=== PATIENT | male | born 1950 | race Caucasian/White ===

== ENCOUNTER 2020-03-28 15:17 | Inpatient (IN) | payer MEDICARE, OTHER ==
[~2020-03-28] VITALS: Ht 177.8 cm; Wt 76.4 kg
[2020-03-28] MEDS ORDERED: SYNTHROID100 MCG PO (15:31)
[2020-03-28] MEDS ORDERED: OSTEO BI-FLEX1 EAC1 PO (15:31)
[2020-03-28] MEDS ORDERED: TERBINAFINE HC250 MG PO (15:31)
[2020-03-28] MEDS ORDERED: OMEGA-3100 MG PO (15:31)
[2020-03-28 16:02] LABS: HEMATOCRIT 32.5 % (42.0-54.0); HEMOGLOBIN 11.5 g/dL (13.5-17.5); LYMPHOCYTE ABS# 0.86 10x3/uL (1.32-3.57); MCH 31.3 pg (26.0-34.0); MCHC 35.4 g/dL (31.0-37.0); MCV 88.6 fL (80.0-100.0); MEAN PLATELET VOLUME 11.4 fL (7.4-10.4); NEUTROPHIL ABS# 18.69 10x3/uL (1.78-5.38); PLATELET COUNT 194 10x3/uL (130-400); RBC 3.67 10x6/uL (4.20-6.10); RDW 13.3 % (11.5-14.5); WBC 21.1 10x3/uL (4.8-10.8)
[2020-03-28 16:05] VITALS: BP 105/47
[2020-03-28 16:10] LABS: ANION GAP 12.5 mmol/L (8-16); CALCIUM 8.3 mg/dL (8.5-10.1); CARBON DIOXIDE 22.7 mmol/L (21.0-32.0); CREATININE - SERUM 1.6 mg/dL (0.6-1.3); POTASSIUM - SERUM 3.2 mmol/L (3.5-5.1)
--- NOTE | 2020-03-28 16:15 | NUR ---
SL PLACED RIGHT FA AND BC DRAWN FROM SITE
[2020-03-28 16:18] LABS: ALBUMIN 2.4 g/dL (3.4-5.0); BILIRUBIN - TOTAL 1.36 mg/dL (0.2-1.3); PROTEIN - SERUM 6.8 g/dL (6.4-8.2)
[2020-03-28 16:23] LABS: BILIRUBIN 1+ (NEGATIVE); KETONE SMALL mg/dL (NEGATIVE); NITRITE NEGATIVE (NEGATIVE); UROBILINOGEN 4 mg/dL (< 2)
[2020-03-28 16:28] LABS: GRANULAR CAST 0-5 LPF (NONE SEEN)
[2020-03-28 16:33] LABS: LYMPHOCYTES 5 % (15-50); MONOCYTES 3 % (2-11); NEUTROPHILS 86 % (40-80); TOXIC GRANULATION 2+
[2020-03-28 16:34] LABS: PLATELET ESTIMATE NORMAL; VACUOLES 1+
--- NOTE | 2020-03-28 16:43 | NUR ---
CRITICAL LAB: LACTIC ACID 2.6 LUNA CARTER NOTIFIED
[2020-03-28 17:53] VITALS: BP 105/47
[2020-03-28 18:40] VITALS: BP 108/49
--- NOTE | 2020-03-28 18:41 | NUR ---
2300 FLD BOLUS COMPLETED AND NS INFUSING @ 100 ML /HR
--- NOTE | 2020-03-28 19:05 | NUR ---
AZITHROMYCIN 500 MG COMPLETED @ 0306
--- NOTE | 2020-03-28 19:29 | NUR ---
BS REPORT TO JANI BARAJAS
[2020-03-28 20:00] VITALS: BP 115/55
[2020-03-28 21:32] LABS: SARS-CoV-2 ANTIGEN NEGATIVE- SARS-COV-2 (NEGATIVE)
[2020-03-29] VITALS (8 sets, daily range): BP systolic 104–138; BP diastolic 47–62; BMI 23.6
[2020-03-29 07:34] LABS: APTT 33.7 SECONDS (22.8-39.4); INR 1.3 (0.85-1.17)
[2020-03-29 07:35] LABS: BASOPHILS 0 % (0-2); EOSINOPHILS 0 % (0-7); HEMATOCRIT 27.1 % (42.0-54.0); HEMOGLOBIN 9.6 g/dL (13.5-17.5); IMMATURE GRANULOCYTES 1.2 % (0-5); LYMPHOCYTE ABS# 0.89 10x3/uL (1.32-3.57); LYMPHOCYTES 4.1 % (15-50); MCH 31.2 pg (26.0-34.0); MCHC 35.4 g/dL (31.0-37.0); MEAN PLATELET VOLUME 11.7 fL (7.4-10.4); MONOCYTES 1.7 % (2-11); NEUTROPHIL ABS# 20.18 10x3/uL (1.78-5.38); PLATELET COUNT 168 10x3/uL (130-400); RBC 3.08 10x6/uL (4.20-6.10); RDW 13.8 % (11.5-14.5); WBC 21.7 10x3/uL (4.8-10.8)
[2020-03-29 07:55] LABS: ANION GAP 13.7 mmol/L (8-16); CALCIUM 7.6 mg/dL (8.5-10.1); CARBON DIOXIDE 20.8 mmol/L (21.0-32.0); CREATININE - SERUM 1.2 mg/dL (0.6-1.3); MAGNESIUM - SERUM 2.4 mg/dL (1.8-2.4); PHOSPHOROUS 2.6 mg/dL (2.5-4.9); POTASSIUM - SERUM 3.5 mmol/L (3.5-5.1)
[2020-03-29 08:09] LABS: C-REACTIVE PROTEIN 33.9 mg/dL (0.0-0.9)
[2020-03-29 08:38] LABS: ERYTHROCYTE SEDIMENTATION RATE 110 mm/hr (0-20)
--- NOTE | 2020-03-29 19:17 | NUR ---
REPORT FROM JANIE RN. ASSUMING CARE AT THIS TIME.
--- NOTE | 2020-03-29 20:52 | NUR ---
PATIENT SITTING UP IN BED. NAD NOTED. BED IN LOWEST LOCKED POSITION. AA&OX4.
[2020-03-30 00:37] VITALS: BP 131/60
--- NOTE | 2020-03-30 02:39 | NUR ---
PATIENT RESTING IN BED WITH NAD NOTED. LIGHTS DIMMED AND BED IN LOWEST LOCKED POSITION.
[2020-03-30 05:32] VITALS: BP 126/64
[2020-03-30 08:00] VITALS: BP 146/71
[2020-03-30 09:15] LABS: HEMATOCRIT 27.4 % (42.0-54.0); HEMOGLOBIN 9.5 g/dL (13.5-17.5); MCH 30.6 pg (26.0-34.0); MCHC 34.7 g/dL (31.0-37.0); MCV 88.4 fL (80.0-100.0); MEAN PLATELET VOLUME 11.4 fL (7.4-10.4); PLATELET COUNT 215 10x3/uL (130-400); RDW 14.4 % (11.5-14.5); WBC 27.2 10x3/uL (4.8-10.8)
[2020-03-30 09:28] LABS: ANION GAP 13.3 mmol/L (8-16); CALCIUM 7.8 mg/dL (8.5-10.1); CARBON DIOXIDE 20.2 mmol/L (21.0-32.0); CREATININE - SERUM 1.2 mg/dL (0.6-1.3); MAGNESIUM - SERUM 2.5 mg/dL (1.8-2.4); PHOSPHOROUS 3.1 mg/dL (2.5-4.9); POTASSIUM - SERUM 3.5 mmol/L (3.5-5.1)
[2020-03-30 09:41] LABS: BURR CELLS 1+; LYMPHOCYTES 5 % (15-50); NEUTROPHILS 93 % (40-80); PLATELET ESTIMATE NORMAL
[2020-03-30 09:42] LABS: TEAR DROP CELLS OCC
--- NOTE | 2020-03-30 11:00 | NUR ---
VANCOMYCIN COMPLETED AT THIS TIME
[2020-03-30 12:16] VITALS: BP 142/63
--- NOTE | 2020-03-30 13:26 | NUR ---
RECEIVED TO ROOM VIA STRETCHER. IV INFUSING TO RIGHT FOREARM WITHOUT PROBLEMS. GLASSES ON. NO BRUISING SEEN TO LEFT SIDE. BILATERAL UPPER LOBE CRACKLES HEARD. IS IS AT BEDSIDE FROM THE ED WITH PATIENT. WILL ADMIT. ON ROOM AIR SATS ARE 98%, PLACED ON 2L PER NC FOR COMFORT.
--- NOTE | 2020-03-30 13:41 | NUR ---
LEFT ELBOW SEEN WITH SCAB, PATIENT STATES TO HAVING COVID WEEK BEFORE XAVIER.
[2020-03-30 13:47] VITALS: BP 102/78; Ht 177.8 cm; Wt 76.4 kg
--- NOTE | 2020-03-30 18:33 | NUR ---
PATIENT TO REQUEST HOT TEA, GIVEN. BAG FROM HIS DROPPED TO ER GIVEN TO PATIENT. DENIES ANY FURTHER NEEDS.
--- NOTE | 2020-03-30 19:30 | NUR ---
RECEIVED REPORT, WILL ASSUME CARE OF PT, WATCHING TV, DENIES ANY NEEDS, BED IS LOW, SRX2, CALL LIGHT IN REACH, WILL CONTINUE PLAN OF CARE
[2020-03-30 20:30] VITALS: BP 145/70
[2020-03-31 00:30] VITALS: BP 137/56
--- NOTE | 2020-03-31 04:06 | NUR ---
I have reviewed this patient and I concur with the Shift Assessment completed by the Licensed Practical Nurse today this shift.
[2020-03-31 04:30] VITALS: BP 135/61
[2020-03-31 06:39] LABS: BASOPHILS 0.2 % (0-2); EOSINOPHILS 0 % (0-7); HEMATOCRIT 25.5 % (42.0-54.0); LYMPHOCYTE ABS# 1.26 10x3/uL (1.32-3.57); LYMPHOCYTES 6.6 % (15-50); MCH 31.3 pg (26.0-34.0); MCHC 35.3 g/dL (31.0-37.0); MCV 88.5 fL (80.0-100.0); MEAN PLATELET VOLUME 11.5 fL (7.4-10.4); MONOCYTES 4.9 % (2-11); NEUTROPHIL ABS# 15.93 10x3/uL (1.78-5.38); NEUTROPHILS 83.3 % (40-80); PLATELET COUNT 229 10x3/uL (130-400); RBC 2.88 10x6/uL (4.20-6.10); RDW 14.3 % (11.5-14.5)
[2020-03-31 07:03] LABS: CALC OSMOLALITY 291 mosm/kg (275-300); CALCIUM 7.5 mg/dL (8.5-10.1); CARBON DIOXIDE 19.5 mmol/L (21.0-32.0); CHLORIDE - SERUM 110 mmol/L (98-107); GLUCOSE 135 mg/dL (74-106); MAGNESIUM - SERUM 2.1 mg/dL (1.8-2.4); PHOSPHOROUS 3.4 mg/dL (2.5-4.9); POTASSIUM - SERUM 3.9 mmol/L (3.5-5.1); SODIUM 142 mmol/L (136-145); UREA NITROGEN 31 mg/dL (7-18); eGFR NON AFRICAN AMERICAN 78 mL/min (90-120)
[2020-03-31 07:04] LABS: WBC 19.1 10x3/uL (4.8-10.8)
[2020-03-31 07:19] LABS: % SATURATION 54 % (15-55); IRON 68 ug/dl (35-150); TOTAL IRON BIND CAPACITY 124 ug/dl (260-445); UNSAT IRON BIND CAPACITY 56 ug/dl (150-375)
[2020-03-31 08:00] VITALS: BP 143/63
[2020-03-31 11:38] VITALS: BP 138/64
[2020-03-31 16:00] VITALS: BP 128/54
--- NOTE | 2020-03-31 17:34 | NUR ---
0798-RECIEVED PER FLOW SHEET-SITTING UP IN BED-VERBALLY APPROPRIATE- 1130-[facility] CINDY ALONZO AT BEDSIDE AND SPOKE WITH PT-ECHO IN PROGRESS 1630-DR PELAYO AT BEDSIDE-SPOKE WITH PT REGARDING STATUS-
--- NOTE | 2020-03-31 19:55 | NUR ---
RECEIVED REPORT, WILL ASSUME CARE OF PT, SLEEPING, NO DISTRESS AT THIS TIME, BED IS LOW, SRX2, CALL LIGHT IN REACH, WILL CONTINUE PLAN OF CARE
[2020-03-31 20:10] VITALS: BP 140/67
[2020-04-01 00:26] VITALS: BP 142/65
--- NOTE | 2020-04-01 05:34 | NUR ---
I have reviewed this patient and I concur with the Shift Assessment completed by the Licensed Practical Nurse today this shift.
[2020-04-01 07:39] LABS: HEMATOCRIT 29.4 % (42.0-54.0); HEMOGLOBIN 10.1 g/dL (13.5-17.5); LYMPHOCYTE ABS# 1.74 10x3/uL (1.32-3.57); MCH 30.5 pg (26.0-34.0); MCHC 34.4 g/dL (31.0-37.0); MCV 88.8 fL (80.0-100.0); MEAN PLATELET VOLUME 10.5 fL (7.4-10.4); NEUTROPHIL ABS# 16.96 10x3/uL (1.78-5.38); PLATELET COUNT 275 10x3/uL (130-400); RBC 3.31 10x6/uL (4.20-6.10); RDW 14.5 % (11.5-14.5); WBC 21.1 10x3/uL (4.8-10.8)
[2020-04-01 07:50] LABS: CALC OSMOLALITY 284 mosm/kg (275-300); CALCIUM 7.6 mg/dL (8.5-10.1); CARBON DIOXIDE 23.4 mmol/L (21.0-32.0); CHLORIDE - SERUM 107 mmol/L (98-107); CREATININE - SERUM 0.9 mg/dL (0.6-1.3); GLUCOSE 119 mg/dL (74-106); MAGNESIUM - SERUM 1.9 mg/dL (1.8-2.4); PHOSPHOROUS 3.8 mg/dL (2.5-4.9); POTASSIUM - SERUM 3.9 mmol/L (3.5-5.1); SODIUM 141 mmol/L (136-145); VANCOMYCIN - TROUGH 13.8 ug/mL (10.0-20.0); eGFR NON AFRICAN AMERICAN 88 mL/min (90-120)
[2020-04-01 07:51] LABS: UREA NITROGEN 22 mg/dL (7-18)
--- NOTE | 2020-04-01 07:58 | NUR ---
received report. pt lying in bed. resp even and unlabored. 2 LPM via NC intact. AAOx4. no distress noted. pt denies pain. call light and water within reach. bed in lowest position. side rails x2.
[2020-04-01 08:03] VITALS: BP 116/80
[2020-04-01 08:33] VITALS: BP 122/66
[2020-04-01 10:21] VITALS: BP 155/65
[2020-04-01 11:27] LABS: LYMPHOCYTES 12 % (15-50); MONOCYTES 7 % (2-11); NEUTROPHILS 73 % (40-80); PLATELET ESTIMATE NORMAL
--- NOTE | 2020-04-01 13:23 | NUR ---
Nutrition Follow-up: Pt in droplet isolation. Chart reviewed. Noted poor PO intake yesterday (0-10%). Diet: Regular PO intake: 18% avg x 4 meals Wt: 168# (03/30) Labs noted: Glu 119, Ca 7.6 Meds noted: Phenergan, Florajen, Pepcid, Glucosamine, Lasix, Decadron, fish oil, zinc sulfate, vit B1, vit C, vit D, electrolyte protocol -Encourage PO intake and honor food preferences. -+Ensure with meals. -Need new wt. -RD will follow up within 3-4 days.
[2020-04-01 16:31] VITALS: BP 144/56
--- NOTE | 2020-04-01 17:42 | NUR ---
occult stool sample collected. sent to lab by Doris LEMUS
[2020-04-01 20:18] VITALS: BP 154/56
[2020-04-02 00:40] VITALS: BP 131/41
--- NOTE | 2020-04-02 02:00 | NUR ---
I have reviewed this patient and I concur with the Shift Assessment completed by the Licensed Practical Nurse today this shift.
[2020-04-02 05:09] VITALS: BP 108/60
[2020-04-02 07:13] LABS: BASOPHILS 0.1 % (0-2); EOSINOPHILS 0.1 % (0-7); HEMATOCRIT 27.3 % (42.0-54.0); HEMOGLOBIN 9.5 g/dL (13.5-17.5); IMMATURE GRANULOCYTES 6.3 % (0-5); LYMPHOCYTE ABS# 1.25 10x3/uL (1.32-3.57); LYMPHOCYTES 6.6 % (15-50); MCHC 34.8 g/dL (31.0-37.0); MCV 89.2 fL (80.0-100.0); MEAN PLATELET VOLUME 10.9 fL (7.4-10.4); MONOCYTES 3.4 % (2-11); NEUTROPHIL ABS# 15.92 10x3/uL (1.78-5.38); NEUTROPHILS 83.5 % (40-80); PLATELET COUNT 326 10x3/uL (130-400); RBC 3.06 10x6/uL (4.20-6.10); RDW 14.4 % (11.5-14.5)
[2020-04-02 07:19] LABS: CALC OSMOLALITY 285 mosm/kg (275-300); CALCIUM 7.2 mg/dL (8.5-10.1); CARBON DIOXIDE 24.4 mmol/L (21.0-32.0); CHLORIDE - SERUM 107 mmol/L (98-107); CREATININE - SERUM 0.9 mg/dL (0.6-1.3); GLUCOSE 132 mg/dL (74-106); MAGNESIUM - SERUM 1.9 mg/dL (1.8-2.4); POTASSIUM - SERUM 4.1 mmol/L (3.5-5.1); SODIUM 141 mmol/L (136-145); UREA NITROGEN 22 mg/dL (7-18); eGFR NON AFRICAN AMERICAN 88 mL/min (90-120)
[2020-04-02 08:44] VITALS: BP 113/59
--- NOTE | 2020-04-02 12:39 | MORECARE ---
CASE MANAGEMENT DISCHARGE SUMMARY PATIENT: LAM GLOVER UNIT: [id number] ADM DATE: 03/28/20 AGE: 70 : 48 SEX: M ROOM/BED: D.2121 AUTHOR: SHABBIR CURRY PHYSICIAN: REFERRING PHYSICIAN: CAROLE TEAGUE MD DATE OF SERVICE: 04/02/20 Discharge Plan Patient Name: LAM GLOVER Facility: [facility]:[place] : 1950 Planned Disposition: Home Anticipated Discharge Date: Discharge Date: Expected LOS: Initial Reviewer: [email or web address] Initial Review Date: 04/02/2020 Generated: 04/02/20 1:39 pm Coverage Notice Reviewer: [email or web address] - Katarzyna Kaye Notice Issued Date-Time: 04/02/2020 12:35 Notice Type: IM Discharge Notice Notice Delivered To: Patient Relationship to Patient: Self Prospect Manager Name: Delivery Method: HAND - Hand Delivered Dena Days: Prior Verbal Notification: Recipient Understood Notice: Yes Recipient Signature: Yes Med Rec Note Co-signed by Attending: Coverage Notice Comment: IMM explained, signed, given, copy placed in MR Patient Name: LAM GLOVER Page [id number] at 1239 All edits/amendments must be made on the electronic document DICTATION DATE: 04/02/20 1239 GRADES 9 THROUGH 12 TEACHER: LILO 04/02/20 1239 RPT#: [id number] DC DATE: STATUS: ADM IN [address] [place] [address] [place] [address] END OF REPORT
--- NOTE | 2020-04-02 12:47 | MORECARE ---
CASE MANAGEMENT DISCHARGE SUMMARY PATIENT: LAM GLOVER UNIT: [id number] ADM DATE: 03/28/20 AGE: 70 : 48 SEX: M ROOM/BED: D.6237 AUTHOR: PATRICIODOC PHYSICIAN: REFERRING PHYSICIAN: CAROLE TEAGUE MD DATE OF SERVICE: 04/02/20 Discharge Plan Patient Name: LAM GLOVER Facility: [facility]:[place] : 1950 Planned Disposition: Home Anticipated Discharge Date: Discharge Date: Expected LOS: Initial Reviewer: [email or web address] Initial Review Date: 04/02/2020 Generated: 04/02/20 1:46 pm Comments DCP- Discharge Planning Updated by [email or web address]: Katarzyna Kaye on 04/02/20 11:[address] Patient Name: LAM GLOVER Admission Status: ER Accout number: [id number] Admission Date: 03-28-2020 : 1950 Admission Diagnosis:PNEUMONIA, UNSPECIFIED ORGANISM Attending: CAROLE MATSON Current LOS: 5 Anticipated DC Date: Planned Disposition: Home Primary Insurance: MEDICARE A & B Discharge Planning Comments: CM met with patient to complete initial dc planning assessment. CM educated patient on the CM role and verbal consent given by patient to complete assessment. CM verified patient's address, phone number, and emergency contact phone numbers. Patient lives at home with spouse. At discharge patient plans to return and feels this is a safe discharge. CM discussed availability of home health, rehab services, and medical equipment. Patient denied known discharge needs at this time. Transportation provider at discharge will be his . He is not wearing oxygen, walk test has been ordered and I spoke with Shankar with RT. IMM explained, signed, given, copy placed in MR. CM will continue to follow and will assist as needed with dc plans/needs. Residential Substance Abuse Counselor: Katarzyna Kaye DCPIA - Discharge Planning Initial Assessment Updated by [email or web address]: Katarzyna Kaye on 04/02/20 12:40 pm * Is the patient Alert and Oriented? Yes * How many steps to enter\exit or inside your home? ramp/0 * PCP See's Kina at [facility], thinks it's Dr. Sow * Pharmacy [facility] * Preadmission Environment Home with Family * ADLs Independent * Equipment None * List name and contact numbers for known caregivers / representatives who currently or will assist patient after discharge: Serina Glover - [phone] * Verbal permission to speak to the caregivers and representatives has been obtained from the patient. Yes * Community resources currently utilized None * Additional services required to return to the preadmission environment? No * Can the patient safely return to the preadmission environment? Yes * Has this patient been hospitalized within the prior 30 days at any hospital? No Coverage Notice Reviewer: [email or web address] Marc Kaye Notice Issued Date-Time: 04/02/2020 12:35 Notice Type: IM Discharge Notice Notice Delivered To: Patient Relationship to Patient: Self Drum Carrier Name: Delivery Method: HAND - Hand Delivered Dena Days: Prior Verbal Notification: Recipient Understood Notice: Yes Recipient Signature: Yes Med Rec Note Co-signed by Attending: Coverage Notice Comment: IMM explained, signed, given, copy placed in MR Last DP export: 04/02/20 11:39 a Patient Name: LAM GLOVER Page [id number] at 1247 All edits/amendments must be made on the electronic document DICTATION DATE: 04/02/201245 PASSENGER VESSEL CHEF: LILO 04/02/20 124 RPT#: [id number] DC DATE: STATUS: ADM IN [facility] [address] [place] [address] END OF REPORT
[2020-04-02 13:02] VITALS: BP 134/52
[2020-04-02] MEDS ORDERED: FEXOFENADINE HC60 MG PO (13:21)
[2020-04-02] MEDS ORDERED: MUCINEX DM ER1 EAC1 PO (13:22)
[2020-04-02] MEDS ORDERED: DULERA 100 MCG8.8 GM INH (13:22)
[2020-04-02] MEDS ORDERED: TESSALON PERLE100 MG PO (13:22)
[2020-04-02] MEDS ORDERED: SINGULAIR10 MG PO (13:22)
[2020-04-02] MEDS ORDERED: AZITHROMYCIN500 MG PO (13:24)
[2020-04-02] MEDS ORDERED: OMNICEF300 MG PO (13:24)
--- NOTE | 2020-04-02 14:30 | EC ---
PATIENT:LAM GLOVER DATE OF SERVICE: 03/28/20 SEX: M MEDICAL RECORD: [id number] DATE OF : 46 LOCATION:D.M2 D.212 AGE OF PATIENT: 70 ADMISSION DATE: 03/28/20 REFERRING PHYSICIAN: INTERPRETING PHYSICIAN: LOPEZ MASTERS MD ECHOCARDIOGRAM REPORT ECHO CHARGES 4 ECHO COMPLETE Date: 03/31/20 CLINICAL DIAGNOSIS: EVALUATE CHF ECHOCARDIOGRAPHIC MEASUREMENTS (adult normal given) AC root (d.<3.7cm) 4.1 cm LV Septum d (<1.2 cm> 1.2 cm Valve Excursion 2.4 cm LV Septum (systole) 1.2 cm Left Atria (s.<4.0cm> 4.5 cm LVPW d(<1.2cm) 1.5 cm RV (d.<2.3cm) 4.6 cm LVPW (sytole) 1.6 cm LV diastole(<5.6CM) 5.0 cm MV E-F(>70mm/sec) cm LV systole 3.6 cm LVOT Diameter 2.1 cm MV exc.(>10mm) cm Est.ejection fraction (50-75%) 55 % DOPPLER: LVIT cm/sec A 78 cm/sec E 112 cm/sec LA cm/sec RVSP 46 mmHg LVOT 121 cm/sec AOP1/2T m/s Asc. Ao 129 cm/sec RVOT 69 cm/sec RA 4.9 cm/sec PA 72 cm/sec AV Gradient Peak 6 mmHg AV Mean 3 mmHg AV Area 3.0 cm MV Gradient Peak 8 mmHg MV Mean 2 mmHg MV Area cm COMMENTS: Slide Machine Tender: Fabiola PRUETT Healthcare Analyst: 3 Dr. Martinez TAPE# Pericardial Effusion N DATE OF SERVICE: Adequate 2D, color-flow imaging, spectral Doppler, and M-Mode FINDINGS: No LVH. LV internal dimension is normal. Wall motion is normal. EF is greater than or equal to 55%. Aortic valve is tricuspid. No evidence of stenosis by Doppler interrogation. There is mild AI by color-flow imaging. Left atrium is mildly dilated at 4.5 cm. Mitral valve shows no prolapse. Trace MR. Right side is grossly normal. Trace TR. ECHOCARDIOGRAM REPORT [id number] LAM GLOVER TRANSINT:[id number] Voice Confirmation ID: [id number] DOCUMENT ID: [id number] LOPEZ MASTERS MD at 1430 CC: [id number] DICTATION DATE: 04/01/20 1009 SCHOOL COUNSELOR: 04/01/20 1249 ADM IN [facility] [address] [id number]
[2020-04-02 15:11] LABS: AEROBE ID Final report (())
[2020-04-02 16:08] VITALS: BP 138/37
--- NOTE | 2020-04-02 16:20 | NUR ---
PATIENT WALKED 150 FEET WITH CGA.
--- NOTE | 2020-04-02 17:10 | NUR ---
PATIENT BEING WHEELED OUT AT THIS TIME. BELONGINGS IN HAND. NAD NOTED.
--- NOTE | 2020-04-03 09:46 | MORECARE ---
CASE MANAGEMENT DISCHARGE SUMMARY PATIENT: LAM GLOVER UNIT: [id number] ADM DATE: 03/28/20 AGE: 70 : 48 SEX: M ROOM/BED: D.6116 AUTHOR: PATRICIODOC PHYSICIAN: REFERRING PHYSICIAN: CAROLE TEAGUE MD DATE OF SERVICE: 04/03/20 Discharge Plan Patient Name: LAM GLOVER Facility: [facility]:[place] : 1950 Planned Disposition: Home Anticipated Discharge Date: Discharge Date: 04/02/2020 Expected LOS: Initial Reviewer: [email or web address] Initial Review Date: 04/02/2020 Generated: 04/03/20 10:45 am Comments DCP- Discharge Planning Updated by [email or web address]: Katarzyna Kaye on 04/02/20 11:[address] Patient Name: LAM GLOVER Admission Status: ER Accout number: [id number] Admission Date: 03-28-2020 : 1950 Admission Diagnosis:PNEUMONIA, UNSPECIFIED ORGANISM Attending: CAROLE MATSON Current LOS: 5 Anticipated DC Date: Planned Disposition: Home Primary Insurance: MEDICARE A & B Discharge Planning Comments: CM met with patient to complete initial dc planning assessment. CM educated patient on the CM role and verbal consent given by patient to complete assessment. CM verified patient's address, phone number, and emergency contact phone numbers. Patient lives at home with spouse. At discharge patient plans to return and feels this is a safe discharge. CM discussed availability of home health, rehab services, and medical equipment. Patient denied known discharge needs at this time. Transportation provider at discharge will be his . He is not wearing oxygen, walk test has been ordered and I spoke with Shankar with RT. IMM explained, signed, given, copy placed in MR. CM will continue to follow and will assist as needed with dc plans/needs. Control Systems Engineer: Katarzyna Kaye DCPIA - Discharge Planning Initial Assessment Updated by [email or web address]: Katarzyna Kaye on 04/02/20 12:40 pm * Is the patient Alert and Oriented? Yes * How many steps to enter\exit or inside your home? ramp/0 * PCP See's Kina at [facility], thinks it's Dr. Sow * Pharmacy [facility] * Preadmission Environment Home with Family * ADLs Independent * Equipment None * List name and contact numbers for known caregivers / representatives who currently or will assist patient after discharge: Serina Glover - [phone] * Verbal permission to speak to the caregivers and representatives has been obtained from the patient. Yes * Community resources currently utilized None * Additional services required to return to the preadmission environment? No * Can the patient safely return to the preadmission environment? Yes * Has this patient been hospitalized within the prior 30 days at any hospital? No Coverage Notice Reviewer: [email or web address] Marc Kaye Notice Issued Date-Time: 04/02/2020 12:35 Notice Type: IM Discharge Notice Notice Delivered To: Patient Relationship to Patient: Self Corporate Administrative Assistant Name: Delivery Method: HAND - Hand Delivered Dena Days: Prior Verbal Notification: Recipient Understood Notice: Yes Recipient Signature: Yes Med Rec Note Co-signed by Attending: Coverage Notice Comment: IMM explained, signed, given, copy placed in MR Last DP export: 04/02/20 11:47 a Patient Name: LAM GLOVER Page [id number] at 0946 All edits/amendments must be made on the electronic document DICTATION DATE: 04/03/20944 DATA CLERK: LILO 04/03/20944 RPT#: [id number] DC DATE:04/02/20 STATUS: DIS IN [facility] [address] [place] [address] END OF REPORT
== END 2020-04-02 17:10 | disposition home or self-care (01) | DRG 193 ==
LOC: D.ER 15:17 → D.M2 16:57 → D.EDHOLD 16:57 → D.M2 03-30 12:17
PROVIDERS: Family Medicine; Internal Medicine Pulmonary Disease; ADMIT Family Medicine; ATTEND Family Medicine
DX: J18.9 Pneumonia, unspecified organism (principal); N17.0 Acute kidney failure with tubular necrosis; S27.321A Contusion of lung, unilateral, initial encounter; J44.0 Chronic obstructive pulmonary disease with (acute) lower respiratory infection; J44.1 Chronic obstructive pulmonary disease with (acute) exacerbation; E87.1 Hypo-osmolality and hyponatremia; W19.XXXA Unspecified fall, initial encounter; D64.9 Anemia, unspecified; E87.6 Hypokalemia; E03.9 Hypothyroidism, unspecified; M19.90 Unspecified osteoarthritis, unspecified site; Z87.891 Personal history of nicotine dependence

== ENCOUNTER → 2020-06-13 11:13 | Outpatient (CLI) | payer MEDICARE, OTHER ==
[2020-03-30 13:47] VITALS: BMI 24.1
[~2020-06-13 11:13] MED LIST: AZITHROMYCIN500 MG PO; DULERA 100 MCG8.8 GM INH; FEXOFENADINE HC60 MG PO; MUCINEX DM ER1 EAC1 PO; OMEGA-3100 MG PO; OMNICEF300 MG PO; OSTEO BI-FLEX1 EAC1 PO; SINGULAIR10 MG PO; SYNTHROID100 MCG PO; TERBINAFINE HC250 MG PO; TESSALON PERLE100 MG PO
== END | disposition home or self-care (01) ==
LOC: D.RT 11:00
PROVIDERS: ATTEND Internal Medicine Pulmonary Disease
DX: R06.09 Other forms of dyspnea (principal)